=== PATIENT | male | born 1955 | race Caucasian/White ===

== ENCOUNTER 2021-07-14 20:17 | Emergency (ER) | payer MEDICAID | END 2021-07-14 21:05 | disposition left against medical advice (07) | LOC: JD.ED 20:17 | DX: Z53.21 Procedure and treatment not carried out due to patient leaving prior to being seen by health care provider (principal) ==

== ENCOUNTER 2021-07-15 16:55 | Emergency (ER) | payer MEDICAID ==
[2021-07-15] MEDS ORDERED: Sodium Chloride 0.9% 10 ML Syringe FLUSH PRN (18:08)
--- NOTE | 2021-07-15 18:20 | EDM.PDOC ---
ED HPI GENERAL MEDICAL PROBLEM - General Chief Complaint: General Stated Complaint: POSS BLOOD TRANSFUSION Time Seen by Provider: 07/15/21 18:06 Source of Information: Reports: Patient, Old Records, RN Notes Reviewed History Limitations: Reports: No Limitations - History of Present Illness INITIAL COMMENTS - FREE TEXT/NARRATIVE: Patient is a 66-year-old male who presents to the ER for a possible blood transfusion. The patient is a dialysis patient of Dr. Dang. His hemoglobin yesterday was at 5.8. He presented to the ER last night for blood transfusion but we were extremely busy and he left at that time. He presents again today because he believes that he needs a blood transfusion. His last blood transfusion was on 06/22/2021. For which she received 2 units of O+ blood. Patient is not having any fevers or chills, cough or shortness of breath, nausea/vomiting/diarrhea. States he is not feeling dizzy or lightheaded. Blood pressure is a little bit low at 98/65. But he states he feels fine otherwise. Patient has a general sallow appearance. - Related Data Allergies Allergy/AdvReac Type Severity Reaction Status Date / Time No Known Allergies Allergy Verified 07/15/21 18:14 ED ROS GENERAL - Review of Systems Review Of Systems: Comprehensive ROS is negative, except as noted in HPI. ED EXAM, GENERAL - Physical Exam Exam: See Below Exam Limited By: No Limitations General Appearance: Alert, WD/WN, No Apparent Distress Respiratory/Chest: No Respiratory Distress, Lungs Clear, Normal Breath Sounds, No Accessory Muscle Use, Chest Non-Tender Cardiovascular: Normal Peripheral Pulses, Regular Rate, Rhythm, No Edema Peripheral Pulses: 2+: Radial (L), Radial (R) Extremities: Normal Inspection, Normal Capillary Refill Neurological: Alert, Oriented, Normal Cognition, No Motor/Sensory Deficits Psychiatric: Normal Affect, Normal Mood Skin Exam: Warm, Dry, Intact, No Rash, Pallor (generalized-somewhat sallow) Course - Vital Signs Last Recorded V/S: Last Vital Signs Temp 97.5 F 07/15/21 21:26 Pulse 83 07/15/21 21:26 Resp 18 07/15/21 21:26 BP 101/60 07/15/21 21:26 Pulse Ox 90 L 07/15/21 18:11 - Orders/Labs/Meds Orders: Active Orders 24 hr Category Date Time Status Peripheral IV Care [RC] . DIRECTED Care 07/15/21 18:08 Active RED BLOOD CELLS LP [BBK] Stat Lab 07/15/21 18:52 Results TYPE AND SCREEN [BBK] Stat Lab 07/15/21 18:52 Results Sodium Chloride 0.9% [Saline Flush] Med 07/15/21 18:08 Active 10 ml FLUSH ASDIRECTED PRN Peripheral IV Insertion Adult [OM.PC] Routine Oth 07/15/21 18:08 Ordered Transfuse PRBC [Transfuse Red Blood Cells] [COMM] Stat Oth 07/15/21 19:07 Ord ered Medication Orders Sodium Chloride (Sodium Chloride 0.9% 10 Ml Syringe) 10 ml FLUSH ASDIRECTED PRN PRN Reason: Keep Vein Open Labs: Laboratory Tests 07/15/21 07/15/21 Range/Units 18:52 18:52 WBC 4.70 (4.23-9.07) K/mm3 RBC 2.16 L (4.63-6.08) M/mm3 Hgb 6.3 L* (13.7-17.5) gm/dl Hct 20.7 L (40.1-51.0) % MCV 95.8 H (79.0-92.2) fl MCH 29.2 (25.7-32.2) pg MCHC 30.4 L (32.2-35.5) g/dl RDW Std Deviation 55.8 H (35.1-43.9) fL Plt Count 186 (163-337) K/mm3 MPV 8.9 L (9.4-12.3) fl Neut % (Auto) 55.7 (34.0-67.9) % Lymph % (Auto) 25.3 (21.8-53.1) % [place] % (Auto) 15.7 H (5.3-12.2) % Eos % (Auto) 2.3 (0.8-7.0) Baso % (Auto) 0.6 (0.1-1.2) % Neut # (Auto) 2.61 (1.78-5.38) K/mm3 Lymph # (Auto) 1.19 L (1.32-3.57) K/mm3 [place] # (Auto) 0.74 (0.30-0.82) K/mm3 Eos # (Auto) 0.11 (0.04-0.54) K/mm3 Baso # (Auto) 0.03 (0.01-0.08) K/mm3 Blood Type O POSITIVE Gel Antibody Screen Negative Crossmatch See Detail Meds: Medications Generic Name Dose Route Start Last Admin Trade Name Fredamián PRN Reason Stop Dose Admin Sodium Chloride 10 ml 07/15/21 18:08 Sodium Chloride 0.9% 10 Ml Syringe FLUSH ASDIRECTED PRN Keep Vein Open Discontinued Medications Generic Name Dose Route Start Last Admin Trade Name Freq PRN Reason Stop Dose Admin Sodium Chloride Confirm 07/15/21 20:42 Normal Saline Administered 07/15/21 20:43 Dose 500 mls @ as directed .ROUTE .K-MED ONE - Re-Assessments/Exams Free Text/Narrative Re-Assessment/Exam: 07/15/21 18:18 Patient presents to the ER for evaluation of a possible blood transfusion. We will go ahead get IV started, do type and screen and a CBC for ongoing management. Patient will likely necessitate 2 units of blood. 07/15/21 19:10 Patient's hemoglobin is 6.3, have ordered for 2 units to be infused at this time. Departure - Departure Time of Disposition: 21:49 Disposition: Home, Self-Care 01 Condition: Good Clinical Impression: Low hemoglobin, Encounter for blood transfusion - Discharge Information *PRESCRIPTION DRUG MONITORING PROGRAM REVIEWED*: No *COPY OF PRESCRIPTION DRUG MONITORING REPORT IN PATIENT DARIEN: No Referrals: Lo Felix, [facility]GER [Primary Care Provider] - Forms: ED Department Discharge Additional Instructions: You were evaluated in the ER today because you had a low hemoglobin. You did receive 2 units of blood at today's visit. Call your provider Saturday morning for ongoing management, and please attend your dialysis appointments as previously scheduled. Do not hesitate to return to the ER at any time if symptoms change or worsen. Sepsis Event Note (ED) - Evaluation Sepsis Screening Result: No Definite Risk - Focused Exam Vital Signs: Vital Signs Temp Temp Pulse Resp BP Pulse Ox 07/15/21 21:26 97.5 F 83 18 101/60 07/15/21 21:24 97.3 F 83 16 93/64 07/15/21 18:11 98.5 F 102 H 16 98/65 90 L - My Orders Last 24 Hours: My Active Orders 07/15/21 18:08 Peripheral IV Care [RC] . DIRECTED Sodium Chloride 0.9% [Saline Flush] 10 ml FLUSH ASDIRECTED PRN Peripheral IV Insertion Adult [OM.PC] Routine 07/15/21 18:52 RED BLOOD CELLS LP [BBK] Stat TYPE AND SCREEN [BBK] Stat 07/15/21 19:07 Transfuse PRBC [Transfuse Red Blood Cells] [COMM] Stat - Assessment/Plan Last 24 Hours: My Active Orders 07/15/21 18:08 Peripheral IV Care [RC] . DIRECTED Sodium Chloride 0.9% [Saline Flush] 10 ml FLUSH ASDIRECTED PRN Peripheral IV Insertion Adult [OM.PC] Routine 07/15/21 18:52 RED BLOOD CELLS LP [BBK] Stat TYPE AND SCREEN [BBK] Stat 07/15/21 19:07 Transfuse PRBC [Transfuse Red Blood Cells] [COMM] Stat
[2021-07-15] MEDS ORDERED: Sodium Chloride 0.9% 500 ML ONE (20:42)
== END 2021-07-16 01:55 | disposition home or self-care (01) ==
LOC: JD.ED 16:55
DX: Z01.83 Encounter for blood typing (principal); D64.9 Anemia, unspecified
CPT/HCPCS: 36415; 36430; 85025; 86850; 86900; 86901; 86922; 99284; P9016